=== PATIENT | male | born 1975 | race African-American/Black ===

== ENCOUNTER 2018-08-03 08:33 | Emergency (ER) | payer BC ==
[~2018-08-03] VITALS: Ht 182.9 cm; Wt 104.3 kg
[2018-08-03] MEDS ORDERED: DOXY100C2 PO (10:16)
[2018-08-03 10:25] VITALS: BP 185/104
--- NOTE | 2018-08-03 14:18 | PHYS DOC ---
Past Medical History Past Medical History: No Pertinent History Past Surgical History: No Surgical History Alcohol Use: None Drug Use: None Adult General Chief Complaint Chief Complaint: COUGH HPI HPI Patient is a 43 year old m with cc of cough x one month sinus congestion subjective fever on and off. had a uri got somewhat better over the last month but the last few days has gotten worse Review of Systems Review of Systems Constitutional: Eyes: Denies change in visual acuity, redness, or eye pain [] ] Musculoskeletal: Denies back pain or joint pain [] Integument: Denies rash or skin lesions [] Neurologic: Denies headache, focal weakness or sensory changes [] Endocrine: Denies polyuria or polydipsia [] All other systems were reviewed and found to be within normal limits, except as documented in this note. Allergies Allergies Allergies Coded Allergies Type Severity Reaction Last Updated Verified No Known Drug Allergies 08/03/18 No Physical Exam Physical Exam Constitutional: Well developed, well nourished, no acute distress, non-toxic appearance. [] HENT: oropharynx normal there is uniliatearl sinus ttp noted to the right maxillary area Eyes: PERRLA, EOMI, conjunctiva normal, no discharge. [] Neck: Normal range of motion, no tenderness, supple, no stridor. [] Cardiovascular:Heart rate regular rhythm, no murmur [] Lungs & Thorax: Bilateral breath sounds clear to auscultation [] Abdomen: Bowel sounds normal, soft, no tenderness, no masses, no pulsatile masses. [] Extremities: No tenderness, no cyanosis, no clubbing, ROM intact, no edema. [] Neurologic: Alert and oriented X 3, normal motor function, normal sensory function, no focal deficits noted. [] Psychologic: Affect normal, judgement normal, mood normal. [] Current Patient Data Vital Signs Vital Signs Date Time Temp Pulse Resp B/P (MAP) Pulse Ox O2 Delivery O2 Flow Rate FiO2 08/03/18 10:25 81 20 185/104 (131) 95 Room Air 08/03/18 08:45 98.3 98.3 EKG EKG [] Radiology/Procedures Radiology/Procedures [] Course & Med Decision Making Course & Med Decision Making Pertinent Labs and Imaging studies reviewed. (See chart for details) []p/w sinusitis symptoms biphasic timeline by hx unilateral ttp doxy bp f/u in one month pt aware. Dragon Disclaimer Neel Disclaimer This electronic medical record was generated, in whole or in part, using a voice recognition dictation system. Departure Departure Impression: Primary Impression: Sinusitis Additional Impression: Elevated blood pressure reading Disposition: HOME, SELF-CARE Condition: STABLE Patient Instructions: Sinusitis, [id number] Scripts Doxycycline Hyclate (DOXYCYCLINE HYCLATE) 100 Mg Capsule 1 CAP PO BID, #20 CAP Prov: GURJIT CONNOLLY MD 08/03/18 Problem Qualifiers GURJIT CONNOLLY MD Aug 03, 2018 14:18
== END 2018-08-03 10:25 | disposition home or self-care (01) ==
LOC: ER 08:33
DX: J32.9 Chronic sinusitis, unspecified (principal); R03.0 Elevated blood-pressure reading, without diagnosis of hypertension
CPT/HCPCS: 99283